=== PATIENT | male | born 1960 ===

== ENCOUNTER 2023-08-19 11:44 | Emergency (ER) | payer MEDICAID ==
[~2023-08-19] VITALS: Ht 172.7 cm; Wt 109.1 kg
[2023-08-19 11:55] VITALS: TEMP 98
[2023-08-19] MEDS ORDERED: MIDAZolam 1 MG/ML 5ML VIAL IV ONE (12:20)
[2023-08-19] MEDS: MIDAZolam 5mg/ml 2ml vial IV ONE (12:32)
[2023-08-19] MEDS: CefTRIAXone/D5W-Rocephin 1gm 50 ML IV ONE (12:40)
[2023-08-19 12:53] LABS: BASOPHILS # (AUTO) 0.2 X10'3 (0-0.2); BASOPHILS % (AUTO) 0.9 % (0-1); EOSINOPHILS # (AUTO) 0.9 X10'3 (0-0.9); EOSINOPHILS % (AUTO) 4.6 % (0-6); HEMATOCRIT 42.4 % (42.0-52.0); LYMPHOCYTES # (AUTO) 6.2 X10'3 (1.1-4.8); LYMPHOCYTES % (AUTO) 31.7 % (21-51); MEAN CORPUSCULAR HEMOGLOBIN 28.5 PG (27.0-31.0); MEAN CORPUSCULAR VOLUME 86.4 FL (78-98); MEAN PLATELET VOLUME 7.9 FL (7.4-10.4); MONOCYTES # (AUTO) 1.5 X10'3 (0-0.9); MONOCYTES % (AUTO) 7.8 % (2-12); NEUTROPHILS # (AUTO) 10.8 X10'3 (1.8-7.7); PLATELET COUNT 334 X10'3 (140-440); RED BLOOD COUNT 4.91 X10'6 (4.70-6.10); RED CELL DISTRIBUTION WIDTH 14.8 % (11.5-14.5); WHITE BLOOD COUNT 19.6 X10'3 (4.5-11.0)
[2023-08-19 12:58] LABS: ALANINE AMINOTRANSFERASE 22 U/L (12-78); ALBUMIN 4.2 G/DL (3.4-5.0); ALBUMIN/GLOBULIN RATIO 1.2 (1.1-1.5); ALKALINE PHOSPHATASE 77 IU/L (46-116); ANION GAP 24 (8-16); ASPARTATE AMINO TRANSFERASE 15 U/L (10-37); BLOOD UREA NITROGEN 24 MG/DL (7-18); CALCIUM 9.4 MG/DL (8.5-10.1); CHLORIDE 105 MMOL/L (99-107); CREATININE 1.41 MG/DL (0.60-1.10); ETHANOL < 10 MG/DL (<10); GLUCOSE 174 MG/DL (70-104); SODIUM 145 MMOL/L (135-145); TOTAL CARBON DIOXIDE 16.5 MMOL/L (24-32); TOTAL PROTEIN 7.7 G/DL (6.4-8.2); eCRCL 54 ML/MIN; eGFR 51 ML/MIN
[2023-08-19] MEDS: levetiracetam inj 1,500 MG in normal saline 100ml IV soln 100 ML IV SCH (13:23)
[2023-08-19] MEDS: WATER FOR INJECTION STERILE IV ONE (13:39)
[2023-08-19] MEDS: HUM PROTHROMB CPLX LANS IV ONE (13:39)
[2023-08-19] MEDS ORDERED: SPIR25TA5 PO (13:51)
[2023-08-19] MEDS ORDERED: APIX5TAB3 PO (13:51)
[2023-08-19] MEDS ORDERED: FURO-150 PO (13:51)
[2023-08-19] MEDS ORDERED: ATOR80TA PO (13:51)
[2023-08-19] MEDS ORDERED: CLOP-32 PO (13:51)
[2023-08-19] MEDS ORDERED: LOSA-415 PO (13:51)
[2023-08-19] MEDS ORDERED: CARV-50 PO (13:51)
[2023-08-19 13:58] LABS: PLATELET ESTIMATE NORMAL; TOTAL CELLS COUNTED 100
[2023-08-19 14:15] VITALS: BP 111/68; PULSE 81; RESP 19; O2SAT 96
== END 2023-08-19 14:26 ==
LOC: ER 11:44
DX: G40.409 Other generalized epilepsy and epileptic syndromes, not intractable, without status epilepticus (principal); I62.9 Nontraumatic intracranial hemorrhage, unspecified; I25.10 Atherosclerotic heart disease of native coronary artery without angina pectoris
CPT/HCPCS: 36415; 70450; 80053; 80320; 83605; 84145; 84484; 85007; 85025; 87040; 93005; 96365; 96368; 96375; 99285; J0696; J1953; J2250; J3490; J7168